=== PATIENT | female | born 2000 | race Caucasian/White ===

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

== ENCOUNTER 2019-07-28 13:04 | Emergency (ER) | payer SELFPAY ==
[~2019-07-28] VITALS: Ht 152.4 cm; Wt 53.5 kg
[2019-07-28 13:10] VITALS: Ht 152.4 cm; Wt 53.5 kg
[2019-07-28 13:57] LABS: BASOPHIL % 0.2 % (0-2); PLATELET COUNT 356 x10^3mcL (130-400)
[2019-07-28 14:15] VITALS: BP 112/87
[2019-07-28 14:19] LABS: CARBON DIOXIDE 26.8 mmol/L (21-32); CHLORIDE SERUM 108 mmol/L (98-107); CREATININE SERUM 0.8 mg/dL (0.6-1.0); GFR1 > 60 mL/min; GLUCOSE SERUM 93 mg/dL (74-106); POTASSIUM SERUM 3.9 mmol/L (3.5-5.1); SODIUM SERUM 144 mmol/L (136-145); TOTAL PROTEIN, SERUM 7.4 g/dL (6.4-8.2)
[2019-07-28 14:20] LABS: ALBUMIN 3.7 g/dL (3.4-5.0); ALKALINE PHOSPHATASE 62 U/L (46-116); ALT/SGPT 18 U/L (14-59); AST/SGOT 14 U/L (15-37); BILIRUBIN TOTAL 0.13 mg/dL (0.20-1.00); CALCIUM 8.5 mg/dL (8.5-10.1)
[2019-07-28 14:44] LABS: AMPHETAMINE QUAL UR NEGATIVE (See below)
[2019-07-28 14:50] LABS: RED CELL DISTRIBUTION WIDTH 16.6 % (11.5-14.5)
== END 2019-07-28 15:06 | disposition home or self-care (01) ==
LOC: ED 13:04
PROVIDERS: Student in an Organized Health Care Education/Training Program
DX: F41.9 Anxiety disorder, unspecified (principal); T42.4X2A Poisoning by benzodiazepines, intentional self-harm, initial encounter; T40.7X2A Poisoning by cannabis (derivatives), intentional self-harm, initial encounter; Y92.89 Other specified places as the place of occurrence of the external cause
CPT/HCPCS: 36415; G0480

== ENCOUNTER 2020-04-14 00:08 | Emergency (ER) | payer MEDICAID ==
[~2020-04-14] VITALS: Ht 152.4 cm; Wt 56.7 kg
[2020-04-14 00:15] VITALS: Ht 152.4 cm; Wt 56.7 kg
[2020-04-14 01:08] LABS: BASOPHIL % 0.3 % (0-2); PLATELET COUNT 401 x10^3mcL (130-400); RED CELL DISTRIBUTION WIDTH 16.8 % (11.5-14.5)
[2020-04-14 01:21] LABS: ALKALINE PHOSPHATASE 82 U/L (46-116); ALT/SGPT 38 U/L (14-59); AST/SGOT 21 U/L (15-37); BILIRUBIN TOTAL 0.3 mg/dL (0.20-1.00); CALCIUM 9.2 mg/dL (8.5-10.1); CARBON DIOXIDE 25.4 mmol/L (21-32); CHLORIDE SERUM 100 mmol/L (98-107); CREATININE SERUM 0.8 mg/dL (0.6-1.0); GFR1 > 60 mL/min; GLUCOSE SERUM 105 mg/dL (74-106); LIPASE 84 IU/L (73-393); POTASSIUM SERUM 3.3 mmol/L (3.5-5.1); SODIUM SERUM 139 mmol/L (136-145); TOTAL PROTEIN, SERUM 8.2 g/dL (6.4-8.2)
[2020-04-14 02:38] VITALS: BP 122/55
== END 2020-04-14 02:38 | disposition home or self-care (01) ==
LOC: ED 00:08
PROVIDERS: Emergency Medicine
DX: N23 Unspecified renal colic (principal); N93.9 Abnormal uterine and vaginal bleeding, unspecified
CPT/HCPCS: J1885; J7030; Q0092